=== PATIENT | male | born 1995 | race Two or more races ===

== ENCOUNTER 2017-05-07 11:02 | Day surgery (SDC) | payer OTHER ==
--- NOTE | 2017-05-07 09:38 | HP ---
H&P (Free Text) History and Physical: [facility] SHEFALI BAUGH MD [address] [place] [phone] HISTORY AND PHYSICAL Date of Visit: May 04, 2017 Patient Name: Jyoti Lopez : 1995 Gender: male Age: 21 years Primary Care Physician: Narendra Monique MD Reason for Visit: CC: Right ring finger fracture. HPI: Jyoti is 21. 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 On , was on the stern tubing when he got the finger snagged and injured it. His pain is 6/10. He went and had x-rays done by Dr. Monique and was referred on to Dr. Lynn, who got in touch with me and he was sent over for potential surgical intervention. The finger is splinted. No other fingers are injured. There is no numbness or tingling. Review of systems, past medical and surgical history, medications, allergies, family and social history were reviewed on the patient intake form and this has been signed. Meds Prior to Visit: No Active Medications Allergies: No Known Drug Allergy Problem List: Disp fx of medial phalanx of right ring finger, init PMH: (Past Medical Problems) (Accidents/Injuries) (Surgeries) (Cardiac Procedures) FH: Cancer, Diabetes, Heart Disease, Hypertension, Arthritis, Stroke. SH: Lives With: Family.Occupation: [employer] Associate. Personal Habits: Smoking: Patient has never smoked.. (Exercise Type/Frequency) Date: 05/04/2017 Was the patient queried about smoking behavior? Yes No Does the patient currently smoke? Smoking: Patient has never smoked. Vitals: Ht: 73.50" Wt: 164lb Pulse: 78 BP: 122/70 Resp: 16 T: 97.2 Pain Level: 0 BMI: 21.3 Ht%: <3rd Wt%: <3rd PHYSICAL EXAM: GENERAL: Awake, alert, very pleasant. RIGHT UPPER EXTREMITY: He has good alignment, but there is diffuse swelling in the right ring finger. He is tender over the PIP joint. Stability and strength examinations were deferred due to the recent fracture. The rest of the fingers have excellent motion, good strength, good stability. Skin is closed. CARDIAC: Regular rate and rhythm. LUNGS: Clear. LEFT UPPER EXTREMITY: Excellent alignment. No tenderness. No swelling. Full painless motion. Full strength. No atrophy. Skin is intact. STUDIES: X-rays of the right hand show displaced fracture of the ulnar condyle of the proximal phalanx in the right ring finger. It is intra-articular and displaced. ASSESSMENT: Displaced right ring finger proximal phalanx ulnar condyle fracture. PLAN: I talked to him about my recommendation for surgical intervention. He would like to proceed with surgery. We talked about risks and benefits, and the fact that he will have a screw in place. He understands and he would like to proceed. I told him the joint would stay stiff and swollen for potentially over a year. Follow up will be at surgery. Assessment #1: Hx S62.624A Displaced fracture of medial phalanx of right ring finger, initial encounter for closed fracture Care Plan: Follow Up : Follow up: next after surgery Sunday
[2017-05-07] MEDS ORDERED: Midazolam* 1 MG/ML 5 ML VIAL (5 MG) ONE (11:25)
[2017-05-07] MEDS ORDERED: fentaNYL* 50 MCG/ML 2 ML VIAL (100 MCG VIAL) ONE ×2 (11:25→13:44)
[2017-05-07] MEDS ORDERED: ceFAZolin 2 GM PREMIX (*) 50 ML IVPB ONE (11:34)
[2017-05-07] MEDS ORDERED: Bupivacaine 0.25% SDV* 30 ML ONE (12:12)
[2017-05-07] MEDS ORDERED: Propofol* 10 MG/ML 20 ML BTL IV PUSH ONE ×2 (12:27)
[2017-05-07] MEDS ORDERED: Ondansetron INJ* 2 MG/ML VIAL IV PRN (12:33)
[2017-05-07] MEDS ORDERED: Midazolam* 1 MG/ML 2 ML VIAL (2 MG) ONE (13:44)
[2017-05-07] MEDS ORDERED: fentaNYL* 50 MCG/ML 5 ML VIAL (250 MCG VIAL) ONE (13:44)
[2017-05-07 14:36] VITALS: BP 124/72
--- NOTE | 2017-05-08 05:21 | OP ---
DATE OF OPERATION: 05/07/17 - [facility] DATE OF : [birth year] SURGEON: Blane Ragsdale MD. REGIONAL DIRECTOR: LUIS Suarez. An advertising assistant manager was needed for the entirety of the procedure to aid in positioning of the finger and arm in retraction. ANESTHESIOLOGIST: Dr. Fraser. ANESTHESIA: Local MAC. PRE-OP DIAGNOSIS: Right ring finger proximal phalanx displaced intraarticular condylar fracture. POST-OP DIAGNOSIS: Right ring finger proximal phalanx displaced intraarticular condylar fracture. OPERATIVE PROCEDURE: Open reduction and internal fixation, right ring finger intraarticular proximal phalanx condylar fracture. INDICATIONS: Jyoti is 21. He fractured the finger tubing. We had talked about the need to align the joint. I told them that I would try to get it closed, but if not, we would do an open reduction and I would try to fix it with a lag screw. He understood the risks and benefits, the risk of stiffness, the risk of extension lag at the PIP joint, risk of prolonged pain and swelling, and tendon irritation. He elected to proceed. ESTIMATED BLOOD LOSS: 2 mL. COMPLICATIONS: None. FINDINGS: As expected. DESCRIPTION OF PROCEDURE: Jyoti was seen in the preoperative holding area and the correct site, side, and procedure were identified. He came back to the operating room where he got some anesthesia. We had a time-out and then I performed a digital block with 0.25% plain Marcaine. The arm was then prepped and draped in the usual fashion. A formal time-out was performed. I began by bringing in the mini C-arm and performed a closed reduction maneuver. I could not get it anatomic. I was concerned about breaking a piece. A point reduction clamp that was placed percutaneously. Ultimately, I decided we should proceed with an open reduction. I then exsanguinated the extremity with the Esmarch and the tourniquet was inflated to 250 mmHg. A dorsal curvilinear incision was made centered over the ulnar side of the PIP joint. Full-thickness flaps were raised right off the peritenon. There was already a traumatic rent in the extensor mechanism, between the central slip and the lateral band. Fracture hematoma was coming out of the rent. I went ahead and extended this traumatic laceration proximally and a bit distally to not injure the triangular ligament. The ulnar side of the joint was visible particularly when I flexed down the PIP joint. I took a fair amount of time cleaning out the fracture hematoma and all of the interval soft tissue and there was quite a bit, especially proximally. This was done with a Strafford blade, the rongeur, and the microcurette. Once I had cleaned the healthy edges, I went ahead and flexed down the PIP joint. I used 2 point reduction clamps to obtain an anatomic reduction. This was confirmed on fluoroscopy. I then switched out the clamps for two 0.6 mm K- wires. Once the clamps were off, I went ahead and placed one 1.3 mm lag screw distally across the fracture site. I then switched out my proximal wire for another 1.3 mm lag screw. These were both screws of the Synthes variable angle handset. I checked the screw length and the alignment on mini C-arm. I was satisfied with everything and so I went ahead and irrigated out the wound. The tendon was repaired with 5-0 Prolene suture. The skin was closed with 4-0 nylon suture. The wound was dressed with Xeroform, 4x4, sterile Webril, and dorsal and volar plaster slabs were placed to both the finger with the IP joint in the extended position and the hand and wrist in the protected position. Tourniquet was deflated and finger pinked up immediately. He was then woken up and taken to the recovery room in stable condition. [id number]/CPS #: [id number] MAIN
--- NOTE | 2017-05-10 07:18 | RAD ---
INDICATION: Traumatic fracture of the proximal phalanx of the right ring finger, closed reduction. COMPARISON: Comparison is made with prior x-ray study of the right hand from May 03, 2017 TECHNIQUE: 42 seconds of intermittent fluoroscopic guidance were provided and 6 spot films of the right hand were obtained in the operating room. FINDINGS: The films demonstrate operative reduction internal fixation of a fracture of the distal aspect of the proximal phalanx of the ring finger. 2 surgical screws are noted transfixing the fracture fragments which appear to be in normal alignment. IMPRESSION: INTRAOPERATIVE CONTROL FILMS. CPT II Codes: [id number]
== END 2017-05-07 15:05 | disposition home or self-care (01) ==
LOC: OREAST 11:02
PROVIDERS: ATTEND Orthopaedic Surgery Hand Surgery
DX: S62.614A Displaced fracture of proximal phalanx of right ring finger, initial encounter for closed fracture (principal); W23.1XXA Caught, crushed, jammed, or pinched between stationary objects, initial encounter; Y92.9 Unspecified place or not applicable
CPT/HCPCS: 76000; C1776; J0690; J2250; J2704; J3010